=== PATIENT | male | born 1990 | race Two or more races ===

== ENCOUNTER 2021-05-04 19:54 | Emergency (ER) | payer SELFPAY ==
[~2021-05-04] VITALS: Ht 193 cm; Wt 127.0 kg
[2021-05-04] MEDS ORDERED: AMOX-424 MT (20:00)
[2021-05-04 20:02] VITALS: BP 123/77
== END 2021-05-04 20:18 | disposition home or self-care (01) ==
LOC: ER 19:54
DX: S71.112A Laceration without foreign body, left thigh, initial encounter (principal); S81.812A Laceration without foreign body, left lower leg, initial encounter; X95.9XXA Assault by unspecified firearm discharge, initial encounter; Y93.89 Activity, other specified; Y92.488 Other paved roadways as the place of occurrence of the external cause
CPT/HCPCS: 99291

== ENCOUNTER 2021-12-06 13:39 | Emergency (ER) | payer MEDICAID ==
[~2021-12-06] VITALS: Ht 190.5 cm; Wt 120.0 kg
[~2021-12-06 13:39] MED LIST: AMOX-424 MT
[2021-12-06] MEDS ORDERED: TETANUS, DIPHTHERIA, PERTUSSIS VAC/PF 0.5ML (>10YR OLD) IM ONE (18:30)
[2021-12-06] MEDS ORDERED: BACITRACIN ZINC OINT UDPKT TOP NR (19:45)
[2021-12-06] MEDS ORDERED: ACET-2708 MT (19:47)
[2021-12-06] MEDS ORDERED: CEPH500C2 MT (19:47)
[2021-12-06 20:02] VITALS: BP 132/78
== END 2021-12-06 20:05 | disposition home or self-care (01) ==
LOC: ER 13:39
DX: S61.412A Laceration without foreign body of left hand, initial encounter (principal); S61.411A Laceration without foreign body of right hand, initial encounter; X58.XXXA Exposure to other specified factors, initial encounter; Y93.89 Activity, other specified; Y92.89 Other specified places as the place of occurrence of the external cause; Y99.8 Other external cause status
CPT/HCPCS: 73100; 73130; 90471; 90715; 99284

== ENCOUNTER 2024-01-28 19:39 | Emergency (ER) | payer MEDICAID ==
[~2024-01-28] VITALS: Ht 190.5 cm; Wt 105.0 kg
[~2024-01-28 19:39] MED LIST changes: +ACET-2708 MT; +CEPH500C2 MT; +IBUP-2029 MT; +METH-653 MT
[2024-01-28 19:54] VITALS: O2SAT 98
[2024-01-28 20:35] LABS: CHLORIDE 104 mEq/L (98-107); POTASSIUM 4.4 mEq/L (3.5-5.1); SODIUM 138 mEq/L (136-145)
[2024-01-28 20:36] LABS: CARBON DIOXIDE 26 mEq/L (21-32)
[2024-01-28 20:37] LABS: CALCIUM 9.5 mg/dL (8.7-10.4)
[2024-01-28 20:41] LABS: CREATININE 1.2 mg/dL (0.6-1.3); GLUCOSE 106 mg/dL (70-105); UREA NITROGEN BLOOD 23 mg/dL (9-23)
[2024-01-28 20:42] LABS: TROPONIN I HIGH SENSITIVITY 45 ng/L (3.0-53)
[2024-01-28 20:47] LABS: HEMATOCRIT. 50.1 % (42.0-52.0); HEMOGLOBIN. 16.7 g/dL (14.0-18.0); MEAN CORPUSCULAR HEMOGLOBIN 31.6 pg (28.0-32.0); MEAN CORPUSCULAR HGB CONC 33.4 g/dL (31.0-37.0); MEAN CORPUSCULAR VOLUME 94.6 fL (80.0-94.0); PLATELET 171 x1000/uL (130-400); RED BLOOD CELL COUNT 5.29 mill/uL (4.7-6.1); RED CELL DISTRIBUTION WIDTH 15.7 % (11.6-14.6); WHITE BLOOD COUNT 9.4 x1000/uL (4.5-11.0)
[2024-01-28 20:49] LABS: DIFFERENTIAL COMMENT 1
[2024-01-28 20:53] LABS: INR 2.4; PROTHROMBIN TIME 25.1 sec (9.6-11.0)
[2024-01-28] MEDS ORDERED: LORA-249 MT (21:25)
[2024-01-28] MEDS ORDERED: LORAZEPAM 1MG TABLET PO ONE (21:30)
[2024-01-28 21:37] LABS: *AMPHETAMINES SCREEN URINE PRESUMPTIVE POSITIVE (NEGATIVE)
[2024-01-28 21:38] LABS: *BARBITURATES SCREEN URINE NEGATIVE (NEGATIVE); *BENZODIAZEPINES SCREEN URINE NEGATIVE (NEGATIVE); *COCAINE SCREEN URINE PRESUMPTIVE POSITIVE (NEGATIVE); CANNABINOID URINE SCREEN NEGATIVE (NEGATIVE); ECSTASY MDMA SCREEN URINE NEGATIVE (NEGATIVE); METHADONE URINE SCREEN NEGATIVE (NEGATIVE); OPIATES URINE SCREEN NEGATIVE (NEGATIVE); PHENCYCLIDINE URINE SCREEN NEGATIVE (NEGATIVE)
[2024-01-28 21:46] LABS: PLATELET ESTIMATE NORMAL
[2024-01-28] MEDS: LORAZEPAM 1MG TABLET PO NR (22:02)
[2024-01-28 22:06] VITALS: BP 98/82; PULSE 79; RESP 19; TEMP 36.78072; O2SAT 99
== END 2024-01-28 22:13 | disposition home or self-care (01) ==
LOC: ER 19:39
DX: R07.89 Other chest pain (principal); F12.10 Cannabis abuse, uncomplicated; F15.10 Other stimulant abuse, uncomplicated; F11.10 Opioid abuse, uncomplicated; Z79.899 Other long term (current) drug therapy
CPT/HCPCS: 36415; 71045; 80048; 80305; 84484; 85025; 93005; 99285